=== PATIENT | male | born 1960 | race Caucasian/White ===

== ENCOUNTER 2017-12-01 22:57 | Inpatient (IN) | payer MEDICAID ==
[2017-12-02 00:05] LABS: ABNORMAL IP MESSAGE 1; HEMATOCRIT 19.5 % (42.0-52.0); MEAN CORPUSCULAR HEMOGLOBIN 31.5 pg (29.0-33.0); MEAN CORPUSCULAR HGB CONC 32.3 g/dl (32.0-37.0); MEAN CORPUSCULAR VOLUME 97.5 fl (82.0-101.0); MEAN PLATELET VOLUME 9.5 fl (7.4-10.4); PLATELET COUNT 120 10^3/UL (140-415); POSITIVE DIFF @See below; RED CELL DISTRIBUTION WIDTH 18.4 % (11.5-14.5)
[2017-12-02] MEDS: SODIUM CHLORIDE 0.9% 1L BAG IV* (00:18)
[2017-12-02 00:30] LABS: INR 1.87; PARTIAL THROMBOPLASTIN TIME 32.9 Sec (25.0-35.0); PROTIME 21.9 Sec (11.9-14.9); PT RATIO 1.7
[2017-12-02 00:32] LABS: HEMOGLOBIN 6.3 g/dl (14.0-18.0)
[2017-12-02 00:33] LABS: ADD MAN DIFF? YES; PATH REVIEW? YES
[2017-12-02 00:49] LABS: ALANINE AMINOTRANSFERASE 10 IU/L (13-69); ALBUMIN 2.3 g/dl (3.3-4.9); ALBUMIN/GLOBULIN RATIO 0.45; ALKALINE PHOSPHATASE 107 IU/L (42-121); ANION GAP 16 (8-16); ASPARTATE AMINO TRANSFERASE 38 IU/L (15-46); BILIRUBIN,INDIRECT 1.3 mg/dl (0-1.1); BILIRUBIN,TOTAL 1.3 mg/dl (0.2-1.3); BLOOD UREA NITROGEN 24 mg/dl (7-20); CALCIUM 7.9 mg/dl (8.4-10.2); CARBON DIOXIDE 13 mmol/L (21-31); CHLORIDE 119 mmol/L (97-110); CREATININE 1.82 mg/dl (0.61-1.24); GLUCOSE 152 mg/dl (70-220); SODIUM 144 mmol/L (135-144); TOTAL PROTEIN 7.4 g/dl (6.1-8.1)
[2017-12-02 01:12] LABS: TROPONIN-I 0.165 ng/ml (0.000-0.120)
[2017-12-02] MEDS: ASPIRIN 81 MG TAB PO (01:38)
[2017-12-02] MEDS: CEFEPIME 2GM/50 ML (PMX) 50 ML IVPB (01:39)
[2017-12-02] MEDS: VANCOMYCIN 1 GM (PMX) 250 ML IVPB (01:39)
[2017-12-02 01:46] LABS: ANISOCYTOSIS 2+ (0-0); BURR CELLS 1+ (0-0); ECHINOCYTOSIS 1+ (0-0); MONOCYTE #M 0.4 10^3/ul (0.3-0.9); MONOCYTES % (M) 2 % (0-11); PLATELET ESTIMATE DECREASED; POIKILOCYTOSIS 1+ (0-0); POLYCHROMASIA 2+ (0-0); SEGMENTED NEUTROPHILS (M) % 98 % (39-77); SMUDGE%M 34 % (0-0)
[2017-12-02] MEDS ORDERED: morphine 2 MG INJ IV (02:00)
[2017-12-02] MEDS ORDERED: ACETAMINOPHEN 650MG/20.3ML CUP PO (02:00)
[2017-12-02] MEDS ORDERED: ALBUTEROL/IPRATROPIUM (NEB) 3 ML AMP NEB (02:00)
[2017-12-02] MEDS ORDERED: ONDANSETRON 4 MG INJ IV (02:00)
[2017-12-02] MEDS ORDERED: NITROGLYCERIN (SL) 0.4 MG TAB SL (02:00)
[2017-12-02] MEDS: HYDROmorphONE 1 MG/ML SYG IV (03:33)
[2017-12-02 03:42] LABS: URINE PH (Dip) POC 5.5 (5.0-8.5)
[2017-12-02 03:42] LABS: URINE BLOOD (Dip) POC 2+ (NEGATIVE); URINE GLUCOSE (Dip) POC Negative (NEGATIVE); URINE KETONES (Dip) POC Trace (NEGATIVE); URINE LEUKOCYTE EST (Dip) POC Negative (NEGATIVE); URINE NITRITE (Dip) POC Negative (NEGATIVE); URINE TOTAL PROTEIN POC 3+ (NEGATIVE)
[2017-12-02 03:45] LABS: LACTIC ACID 5.2 mmol/L (0.5-2.0)
[2017-12-02] MEDS ORDERED: VANCOMYCIN IV PER PHARMACY XX (04:30)
[2017-12-02 04:59] LABS: UR RBC 19 /HPF (0-5); UR WBC 9 /HPF (0-5)
[2017-12-02] MEDS ORDERED: GLUCOSE GEL 15 GRAM TUBE PO ×2 (05:30)
[2017-12-02] MEDS ORDERED: GLUCOSE GEL 15 GRAM TUBE BUCCAL (05:30)
[2017-12-02] MEDS ORDERED: GLUCAGON 1 MG INJ IM (05:30)
[2017-12-02] MEDS ORDERED: DEXTROSE 50% 50 ML SYRINGE IV ×2 (05:30)
[2017-12-02 05:31] LABS: ADD MAN DIFF? NO; HAAIG REFLEX REFLEX FILED
[2017-12-02] MEDS: VANCOMYCIN 1 GM in 250 ML IVPB (05:38)
[2017-12-02 05:43] LABS: ABNORMAL IP MESSAGE 1; BASOPHILS % 0.2 % (0.0-2.0); HEMATOCRIT 20.5 % (42.0-52.0); LYMPHOCYTES # 0.8 10^3/ul (0.8-2.9); LYMPHOCYTES % 4.1 % (15.0-51.0); MEAN CORPUSCULAR HEMOGLOBIN 31.1 pg (29.0-33.0); MEAN CORPUSCULAR HGB CONC 31.7 g/dl (32.0-37.0); MEAN CORPUSCULAR VOLUME 98.1 fl (82.0-101.0); MEAN PLATELET VOLUME 9.8 fl (7.4-10.4); MONOCYTES % 4.7 % (0.0-11.0); NEUTROPHIL # 18.5 10^3/ul (1.6-7.5); NEUTROPHILS % 90.4 % (39.0-77.0); PLATELET COUNT 112 10^3/UL (140-415); POSITIVE DIFF @See below; RED BLOOD COUNT 2.09 10^6/ul (4.70-6.10); RED CELL DISTRIBUTION WIDTH 18.1 % (11.5-14.5)
[2017-12-02 05:43] LABS: WHITE BLOOD COUNT 20.5 10^3/ul (4.8-10.8)
[2017-12-02 05:58] LABS: AMPHETAMINE/METHAMPHETAMINE NEGATIVE (NEGATIVE); BARBITURATES NEGATIVE (NEGATIVE); BENZODIAZEPINES NEGATIVE (NEGATIVE); CANNABINOIDS NEGATIVE (NEGATIVE); COCAINE NEGATIVE (NEGATIVE); OPIATES NEGATIVE (NEGATIVE)
[2017-12-02 06:04] LABS: LACTIC ACID 3.6 mmol/L (0.5-2.0)
[2017-12-02 06:10] LABS: AADO2 Arterial 33.1 mmHg (7.0-24.0); Allen Test ACCEPTAB; Arterial Base Excess -7.8 mmol/L (-3.0-3); Arterial Blood Gas Oxygen Sat 95.8 mmHG (95.0-98.0); Arterial COHb 0.3 % (0.0-3.0); Arterial Fraction of Oxyhgb 95.2 % (93.0-99.0); Arterial HCO3 15.5 mmol/L (22.0-26.0); Arterial MetHb 0.3 % (0.0-1.5); Arterial Total Hemglobin 8.9 g/dl (12.0-18.0); Arterial pCO2 24.5 mmhg (35-45); MODE ROOM AIR; Site Left Radial
[2017-12-02 06:16] LABS: LACTIC ACID 3.6 mmol/L (0.5-2.0)
[2017-12-02 06:28] LABS: ADD UMIC YES; UR ASCORBIC ACID NEGATIVE (NEGATIVE); UR BILIRUBIN (Dip) NEGATIVE (NEGATIVE); UR BLOOD (Dip) 3+ mg/dL (NEGATIVE); UR CLARITY SLIGHTLY CLOUDY (CLEAR); UR COLOR YELLOW (YELLOW); UR GLUCOSE (Dip) NEGATIVE (NEGATIVE); UR KETONES (Dip) NEGATIVE (NEGATIVE); UR LEUKOCYTE ESTERASE (Dip) NEGATIVE Leu/ul (NEGATIVE); UR NITRITE (Dip) NEGATIVE (NEGATIVE); UR RBC 43 /HPF (0-5); UR SPECIFIC GRAVITY (Dip) 1.017 (1.003-1.030); UR TOTAL PROTEIN (Dip) 2+ mg/dl (NEGATIVE); UR UROBILINOGEN (Dip) NEGATIVE (NEGATIVE); UR WBC 15 /HPF (0-5)
[2017-12-02 06:29] LABS: HEMOGLOBIN 6.5 g/dl (14.0-18.0)
[2017-12-02 06:50] LABS: CK-MB 1.55 ng/ml (0.0-2.4)
[2017-12-02 06:51] LABS: CK INDEX 0.6; CREATINE KINASE 239 IU/L (23-200)
[2017-12-02] MEDS: PANTOPRAZOLE 40 MG INJ IV (07:00)
[2017-12-02 07:07] LABS: TROPONIN-I 0.243 ng/ml (0.000-0.120)
[2017-12-02 08:02] LABS: IRON 23 ug/dl (35-150)
[2017-12-02] MEDS: PIPER-TAZO 3.375 GM IV (PMX) 100 ML IVPB ×3 (08:11→17:56)
[2017-12-02] MEDS: INSULIN ASPART [NOVOLOG] 3 ML PEN SC ×4 (08:17→21:00)
[2017-12-02 08:20] LABS: % IRON SATURATION 15 % SAT (22-52); TOTAL IRON BINDING CAPACITY 153 ug/dl (241-421)
[2017-12-02 08:51] LABS: ERYTHROCYTE SEDIMENTATION RATE 118 mm/Hr (0-20)
[2017-12-02 08:55] LABS: ETHANOL < 10.0 mg/dl
[2017-12-02 09:03] LABS: HEPATITIS B SURFACE ANTIGEN NEGATIVE (NEGATIVE)
[2017-12-02 09:21] LABS: HEPATITIS B CORE ANTIBODY NEGATIVE (NEGATIVE); HEPATITIS C VIRAL ANTIBODY REACTIVE (NEGATIVE)
[2017-12-02 09:26] LABS: ALANINE AMINOTRANSFERASE 20 IU/L (13-69); ALBUMIN 2.2 g/dl (3.3-4.9); ALBUMIN/GLOBULIN RATIO 0.44; ALKALINE PHOSPHATASE 99 IU/L (42-121); ANION GAP 13 (8-16); ASPARTATE AMINO TRANSFERASE 35 IU/L (15-46); BILIRUBIN,INDIRECT 1.3 mg/dl (0-1.1); BILIRUBIN,TOTAL 1.3 mg/dl (0.2-1.3); BLOOD UREA NITROGEN 25 mg/dl (7-20); CALCIUM 7.7 mg/dl (8.4-10.2); CARBON DIOXIDE 14 mmol/L (21-31); CHLORIDE 120 mmol/L (97-110); CREATININE 1.73 mg/dl (0.61-1.24); GLUCOSE 141 mg/dl (70-220); POTASSIUM 3.9 mmol/L (3.5-5.1); SODIUM 143 mmol/L (135-144); TOTAL PROTEIN 7.2 g/dl (6.1-8.1)
[2017-12-02 10:45] LABS: HIV 1&2 ANTIBODY NEGATIVE (NEGATIVE)
[2017-12-02 10:56] LABS: AMMONIA 37 umol/l (9-30)
[2017-12-02 10:58] LABS: CREATINE KINASE 240 IU/L (23-200)
[2017-12-02 11:05] LABS: CK INDEX 0.7; CK-MB 1.65 ng/ml (0.0-2.4)
[2017-12-02] MEDS: FUROSEMIDE 40 MG INJ IV (11:14)
[2017-12-02 11:19] LABS: TROPONIN-I 0.212 ng/ml (0.000-0.120)
[2017-12-02 12:10] LABS: OSMOLALITY 303 mOsm/kg (280-295)
[2017-12-02 12:16] LABS: OSMOLALITY,URINE 396 mOsm/kg (250-1200)
[2017-12-02] MEDS: PHYTONADIONE 10 MG in DEXTROSE 5% 50 ML IVPB (12:27)
[2017-12-02 14:53] LABS: LACTIC ACID 2.5 mmol/L (0.5-2.0)
[2017-12-02 15:11] LABS: IMMEDIATE SPIN CROSSMATCH 1 3
[2017-12-02 15:19] LABS: RAPID PLASMA REAGIN NONREACTIVE (NR)
[2017-12-02] MEDS: LACTULOSE 30ML CUP PO ×2 (16:59→21:20)
[2017-12-02 19:13] LABS: CREATINE KINASE 225 IU/L (23-200)
[2017-12-02 19:27] LABS: CK INDEX 0.7; CK-MB 1.51 ng/ml (0.0-2.4); TROPONIN-I 0.109 ng/ml (0.000-0.120)
[2017-12-02] MEDS: ALBUMIN HUMAN 25% 100 ML IV ×2 (19:45→21:21)
[2017-12-02 20:39] LABS: ADD MAN DIFF? NO
[2017-12-02 20:40] LABS: WHITE BLOOD COUNT 12.5 10^3/ul (4.8-10.8)
[2017-12-02 20:40] LABS: ABNORMAL IP MESSAGE 1; BASOPHIL # 0.1 10^3/ul (0.0-0.1); BASOPHILS % 0.4 % (0.0-2.0); EOSINOPHILS # 0.8 10^3/ul (0.0-0.5); EOSINOPHILS % 6.1 % (0.0-7.0); HEMATOCRIT 24.5 % (42.0-52.0); HEMOGLOBIN 8.1 g/dl (14.0-18.0); LYMPHOCYTES # 0.7 10^3/ul (0.8-2.9); LYMPHOCYTES % 5.7 % (15.0-51.0); MEAN CORPUSCULAR HGB CONC 33.1 g/dl (32.0-37.0); MEAN CORPUSCULAR VOLUME 93.9 fl (82.0-101.0); MEAN PLATELET VOLUME 9.7 fl (7.4-10.4); MONOCYTES % 8.2 % (0.0-11.0); NEUTROPHIL # 9.9 10^3/ul (1.6-7.5); NEUTROPHILS % 79.1 % (39.0-77.0); PLATELET COUNT 99 10^3/UL (140-415); POSITIVE DIFF @See below; RED BLOOD COUNT 2.61 10^6/ul (4.70-6.10); RED CELL DISTRIBUTION WIDTH 17.8 % (11.5-14.5)
[2017-12-02 21:00] LABS: ANION GAP 13 (8-16)
[2017-12-02 21:01] LABS: ALANINE AMINOTRANSFERASE 19 IU/L (13-69); ALBUMIN 2.1 g/dl (3.3-4.9); ALBUMIN/GLOBULIN RATIO 0.44; ALKALINE PHOSPHATASE 74 IU/L (42-121); ASPARTATE AMINO TRANSFERASE 28 IU/L (15-46); BILIRUBIN,INDIRECT 2.1 mg/dl (0-1.1); BILIRUBIN,TOTAL 2.1 mg/dl (0.2-1.3); BLOOD UREA NITROGEN 27 mg/dl (7-20); CALCIUM 7.6 mg/dl (8.4-10.2); CARBON DIOXIDE 16 mmol/L (21-31); CHLORIDE 119 mmol/L (97-110); CREATININE 1.71 mg/dl (0.61-1.24); GLUCOSE 110 mg/dl (70-220); POTASSIUM 3.9 mmol/L (3.5-5.1); SODIUM 144 mmol/L (135-144); TOTAL PROTEIN 6.8 g/dl (6.1-8.1)
[2017-12-02 21:07] LABS: LACTIC ACID 1.4 mmol/L (0.5-2.0)
[2017-12-02] MEDS ORDERED: ALBUMIN HUMAN 25% 100 ML (21:17)
[2017-12-03] MEDS: morphine LIQ (10 MG/5 ML) CUP PO (00:09)
[2017-12-03] MEDS: PIPER-TAZO 3.375 GM IV (PMX) 100 ML IVPB ×4 (00:09→17:16)
[2017-12-03] MEDS: ACCU-CHEK XX (02:00)
[2017-12-03 05:41] LABS: ADD MAN DIFF? NO
[2017-12-03 05:47] LABS: ABNORMAL IP MESSAGE 1; BASOPHIL # 0.1 10^3/ul (0.0-0.1); BASOPHILS % 0.6 % (0.0-2.0); EOSINOPHILS # 0.9 10^3/ul (0.0-0.5); EOSINOPHILS % 9.8 % (0.0-7.0); HEMATOCRIT 22.4 % (42.0-52.0); HEMOGLOBIN 7.2 g/dl (14.0-18.0); LYMPHOCYTES # 0.8 10^3/ul (0.8-2.9); LYMPHOCYTES % 8.1 % (15.0-51.0); MEAN CORPUSCULAR HEMOGLOBIN 30.5 pg (29.0-33.0); MEAN CORPUSCULAR HGB CONC 32.1 g/dl (32.0-37.0); MEAN CORPUSCULAR VOLUME 94.9 fl (82.0-101.0); MEAN PLATELET VOLUME 9.9 fl (7.4-10.4); MONOCYTE # 0.8 10^3/ul (0.3-0.9); MONOCYTES % 9.1 % (0.0-11.0); NEUTROPHIL # 6.7 10^3/ul (1.6-7.5); NEUTROPHILS % 72.1 % (39.0-77.0); POSITIVE DIFF @See below; RED BLOOD COUNT 2.36 10^6/ul (4.70-6.10); RED CELL DISTRIBUTION WIDTH 18.3 % (11.5-14.5)
[2017-12-03 05:47] LABS: WHITE BLOOD COUNT 9.2 10^3/ul (4.8-10.8)
[2017-12-03] MEDS: ALBUMIN HUMAN 25% 100 ML IV (05:58)
[2017-12-03] MEDS: FUROSEMIDE 40 MG INJ IV ×2 (06:05→08:39)
[2017-12-03] MEDS: PANTOPRAZOLE 40 MG INJ IV (06:05)
[2017-12-03] MEDS: LACTULOSE 30ML CUP PO ×2 (06:05→13:38)
[2017-12-03 06:06] LABS: PROTIME 23.2 Sec (11.9-14.9); PT RATIO 1.8
[2017-12-03 06:16] LABS: ANION GAP 12 (8-16); BLOOD UREA NITROGEN 29 mg/dl (7-20); CALCIUM 7.7 mg/dl (8.4-10.2); CARBON DIOXIDE 17 mmol/L (21-31); CHLORIDE 120 mmol/L (97-110); CREATININE 1.84 mg/dl (0.61-1.24); GLUCOSE 118 mg/dl (70-220); POTASSIUM 3.9 mmol/L (3.5-5.1); SODIUM 145 mmol/L (135-144)
[2017-12-03 06:28] LABS: PLATELET COUNT 92 10^3/UL (140-415)
[2017-12-03 06:59] LABS: LACTATE DEHYDROGENASE 505 IU/L (313-618)
[2017-12-03] MEDS: VANCOMYCIN 1.5 GM in SOD CHLORIDE 0.9% 250 ML IVPB (07:28)
[2017-12-03] MEDS: INSULIN ASPART [NOVOLOG] 3 ML PEN SC ×3 (07:35→17:17)
[2017-12-03 07:48] LABS: HEMOGLOBIN A1C 5.9 % (0-5.9)
[2017-12-03 12:42] LABS: MITOCHONDRIAL TB NEGATIVE (NEGATIVE); SMOOTH MUSCLE AB SCREEN POSITIVE (NEGATIVE)
[2017-12-03 13:26] LABS: ANA SCREEN NEGATIVE (NEGATIVE)
[2017-12-03 16:09] LABS: RHEUMATOID FACTOR NEGATIVE (NEGATIVE)
[2017-12-05 15:46] LABS: HEPATITIS B DELTA ANTIBODY NEGATIVE
== END 2017-12-03 18:52 | disposition home health service (06) | DRG 871 ==
LOC: MS4 12-03 08:23 → E/R 22:57 → ICU 12-02 01:45
PROVIDERS: Pediatrics Neonatal-Perinatal Medicine
PROC: 30233N1 Transfusion of Nonautologous Red Blood Cells into Peripheral Vein, Percutaneous Approach (ICD-10-PCS; principal; 2017-12-02)
DX: A41.9 Sepsis, unspecified organism (principal); I21.A1 Myocardial infarction type 2; E87.2 Acidosis; N17.9 Acute kidney failure, unspecified; D68.9 Coagulation defect, unspecified; L03.115 Cellulitis of right lower limb; N39.0 Urinary tract infection, site not specified; D68.8 Other specified coagulation defects; R18.8 Other ascites; D64.9 Anemia, unspecified; I12.9 Hypertensive chronic kidney disease with stage 1 through stage 4 chronic kidney disease, or unspecified chronic kidney disease; E11.22 Type 2 diabetes mellitus with diabetic chronic kidney disease; N18.9 Chronic kidney disease, unspecified; R60.9 Edema, unspecified; K76.0 Fatty (change of) liver, not elsewhere classified; R31.9 Hematuria, unspecified; D69.6 Thrombocytopenia, unspecified; Z87.891 Personal history of nicotine dependence; K74.60 Unspecified cirrhosis of liver; K72.90 Hepatic failure, unspecified without coma; Z22.322 Carrier or suspected carrier of Methicillin resistant Staphylococcus aureus; E66.9 Obesity, unspecified; Z68.36 Body mass index [BMI] 36.0-36.9, adult
CPT/HCPCS: 36430; 36600; 71045; 76705; 76775; 80048; 80053; 80307; 81001; 81003; 82140; 82550; 82553; 82803; 82962; 83036; 83540; 83605; 83615; 83930; 83935; 84484; 85025; 85610; 85651; 85730; 86038; 86140; 86255; 86430; 86592; 86692; 86703; 86704; 86708; 86709; 86803; 86850; 86900; 86901; 86920; 87040; 87070; 87081; 87086; 87340; 87522; 93005; 93306; 93970; 96374; 96375; 97116; 97162; 97530; 99291-25